=== PATIENT | male | born 1960 | race African-American/Black ===

== ENCOUNTER 2018-05-22 15:18 | Emergency (ER) | payer OTHER ==
[~2018-05-22] VITALS: Ht 172.7 cm; Wt 68.0 kg
[2018-05-22] MEDS ORDERED: LIDOCAINE HCL/PF 1% 10 MG/ML 5ML VIAL IJ ONE (17:30)
[2018-05-22] MEDS ORDERED: BACITRACIN ZINC OINT UDPKT TOP ONE (17:30)
[2018-05-22] MEDS ORDERED: HYDROCODONE/ACETAMINOPHEN 5/325MG TABLET PO ONE (17:30)
[2018-05-22] MEDS ORDERED: TETANUS AND DIPHTHERIA TOX/PF 0.5ML SYR (ADULT) IM ONE (17:30)
[2018-05-22] MEDS ORDERED: SULBACTAM NA IM NR (20:15)
[2018-05-22] MEDS ORDERED: AMPICILLIN SODIUM IM NR (20:15)
[2018-05-22] MEDS ORDERED: LIDOCAINE HCL 1% 10 MG/ML 10ML VIAL INJ NR (20:15)
[2018-05-22 20:31] VITALS: BP 131/69
== END 2018-05-22 20:33 | disposition home or self-care (01) ==
LOC: ER 15:18
DX: S01.81XA Laceration without foreign body of other part of head, initial encounter (principal); F17.200 Nicotine dependence, unspecified, uncomplicated; Y08.89XA Assault by other specified means, initial encounter; Y93.89 Activity, other specified; Y92.89 Other specified places as the place of occurrence of the external cause; Y99.8 Other external cause status
CPT/HCPCS: 12014; 70450; 70486; 72125; 90471; 90714; 96372; 99284; J0295; J3490; Z7610